=== PATIENT | male | born 1980 | race American Indian/Alaskan Native ===

== ENCOUNTER 2018-01-20 11:45 | Day surgery (SDC) | payer OTHER ==
[2018-01-14 17:31] VITALS: BMI 31.8
[2018-01-20] MEDS ORDERED: Lidocaine 2% Inj (20ml) ONE (12:54)
[2018-01-20] MEDS ORDERED: Iodixanol 320 MG/ML 100 ML BOTTLE IV ONE (12:55)
[2018-01-20] MEDS ORDERED: Iodixanol 320 MG/ML 200 ML BOTTLE IV ONE (12:55)
[2018-01-20] MEDS ORDERED: Iohexol 350mgl/ml 50 ML ONE (12:55)
[2018-01-20] MEDS ORDERED: Nitroglycerin 50mg in D5W 50 MG/250 ML BOTTLE IV ONE (12:55)
[2018-01-20] MEDS ORDERED: Verapamil 0 ML ONE (12:55)
[2018-01-20] MEDS ORDERED: Adenosine 90 mg/30mL IV ONE (13:36)
[2018-01-20] MEDS ORDERED: Midazolam 2 MG/2 ML VIAL ONE ×2 (13:36→13:47)
[2018-01-20] MEDS ORDERED: Sodium Chloride 0.9% 1,000 ML IV SCH (14:30)
[2018-01-20 14:49] VITALS: TEMP 97.5; O2SAT 100
[2018-01-20 18:51] VITALS: BP 119/78; PULSE 72; RESP 22
--- NOTE | 2018-01-20 20:03 | CARDCATH ---
PROCEDURE DATE: 01/20/2018 INDICATION: Mr. Cottrell is a 37-year-old male, who presented to [facility] with acute myocardial infarction, underwent emergent angioplasty and stenting of ramus intermedius by Dr. Perales. He was subsequently transferred to [facility] for possible stage intervention of a lesion that was identified on original angiogram in the RCA territory. PROCEDURE PERFORMED: Selective coronary angiogram of the RCA. FFR of the RCA, physiologically nonsignificant at 0.85. TECHNICAL PROCEDURE: After obtaining informed consent, the patient was brought to the cardiac catheterization suite in post-absorptive and non-sedated state. The patient was prepped and draped in the usual sterile fashion. A 2% lidocaine was used for infiltration of anesthesia. Using modified Seldinger technique, a 6-Faroese sheath was introduced into the left femoral artery subsequently over J-wire, JL-4 guiding catheter, used to engage the right coronary artery. There was significant damping and ventricularization of pressure noted on engagement secondary to vasospasm of the proximal RCA. ANGIOGRAPHIC FINDINGS: Vasospasm of ostial RCA, relieved with IV nitroglycerin. Angiogram of the RCA was done, which showed proximal 55 and distal hazy circumferential lesion. Because of moderate nature of the lesion, it was decided to further interrogate with the FFR wire. FFR wire was subsequently advanced through the lesion to the distal RCA bed, adenosine was infused for a window of 2 minutes. The physiological significance of the FFR was nonsignificant at 0.85. IMPRESSION: Physiologically nonsignificant intermediate lesion in the distal right coronary artery, FFR 0.85. RECOMMENDATIONS: The patient is to continue aggressive medical management. The patient can be transferred back to [facility] in few hours. Raúl Boykin MD cc: 1. William Perales MD 2. Charla Rowland MD
== END 2018-01-20 16:00 | disposition designated cancer center or children's hospital (05) ==
LOC: CATH 11:45 → ICU 14:44 → CATH 16:00
PROVIDERS: ATTEND Internal Medicine Interventional Cardiology
DX: I21.9 Acute myocardial infarction, unspecified (principal)
CPT/HCPCS: 93454; 93571; 99152; 99153; C1760; C1769 ×2; C1887; C1894; J0153; J1644; J2250; J3010; J7030; J7040; Q9966; Q9967 ×2